=== PATIENT | male | born 1945 | race African-American/Black ===

== ENCOUNTER → 2017-10-21 | Outpatient (CLI) | payer MEDICARE, BC ==
[~2017-10-21] MED LIST: FOLI-43 PO; LISI-196 PO; METO-385 PO; METO10TA3 PO; OMEP20CA10 PO; SIMV40TA5 PO
== END | disposition home or self-care (01) ==
LOC: RAD 10:28
PROVIDERS: ATTEND Specialist
DX: R07.9 Chest pain, unspecified (principal)
CPT/HCPCS: 71010

== ENCOUNTER 2018-02-24 07:15 | Emergency (ER) | payer MEDICARE, BC ==
[~2018-02-24] VITALS: Ht 182.9 cm; Wt 87.0 kg
[2018-02-24] MEDS ORDERED: ONDANSETRON HCL 4MG/2ML VIAL IV STA (08:07)
[2018-02-24] MEDS ORDERED: MORPHINE SULFATE 4 MG/ML CPJ (NOT FOR IM USE) IV STA (08:07)
[2018-02-24] MEDS ORDERED: SODIUM CHLORIDE 0.9% 1,000 ML IV ONE (08:07)
[2018-02-24] MEDS ORDERED: KETOROLAC 30MG/ML VIAL IV ONE (08:15)
[2018-02-24 08:41] LABS: CHLORIDE 103 mEq/L (98-107)
[2018-02-24 08:44] LABS: BASOPHILS % 0.5 % (0.0-2.0); EOSINOPHILS % 0.9 % (0.0-5.0); MEAN CORPUSCULAR HEMOGLOBIN 30.6 pg (28.0-32.0); MEAN CORPUSCULAR VOLUME 89.8 fL (80.0-94.0); MEAN PLATELET VOLUME 8.5 fl (7.4-10.4); MONOCYTES % 7.5 % (2.0-8.0); NEUTROPHILS % 74.1 % (40.0-76.0); PLATELET 202 x1000/uL (130-400); RED CELL DISTRIBUTION WIDTH 13.5 % (11.6-14.6)
[2018-02-24 10:23] LABS: CLARITY URINE CLOUDY (CLEAR); COLOR URINE YELLOW (YELLOW); KETONES URINE NEGATIVE (NEGATIVE); LEUKOCYTE ESTERASE URINE NEGATIVE (NEGATIVE); NITRITE URINE NEGATIVE (NEGATIVE); OCCULT BLOOD URINE 3+ (NEGATIVE); PROTEIN URINE TRACE (NEGATIVE); SPECIFIC GRAVITY URINE 1.019 (1.005-1.030); UROBILINOGEN URINE 0.2 E.U./dL (0.2-1.0)
[2018-02-24 14:20] VITALS: BP 122/72
== END 2018-02-24 14:26 | disposition home or self-care (01) ==
LOC: ER 08:14
DX: N20.0 Calculus of kidney (principal); I10 Essential (primary) hypertension; E78.00 Pure hypercholesterolemia, unspecified; Z86.73 Personal history of transient ischemic attack (TIA), and cerebral infarction without residual deficits; Z95.1 Presence of aortocoronary bypass graft
CPT/HCPCS: 36415; 74176; 80053; 81003; 83690; 85025; 96361; 96374; 96375; 99285; J1885; J2270; J2405; J7030

== ENCOUNTER 2018-06-21 11:27 | Inpatient (IN) | payer MEDICARE, BC ==
[~2018-06-21] VITALS: Ht 190.5 cm; Wt 86.6 kg
[2018-06-21] MEDS ORDERED: ASPIRIN 325MG TABLET PO ONE (11:45)
[2018-06-21 14:42] LABS: BASOPHILS % 0.8 % (0.0-2.0); EOSINOPHILS % 1.2 % (0.0-5.0); HEMATOCRIT. 38.2 % (42.0-52.0); HEMOGLOBIN. 13.2 g/dL (14.0-18.0); MEAN CORPUSCULAR HEMOGLOBIN 31.2 pg (28.0-32.0); MEAN CORPUSCULAR VOLUME 90.6 fL (80.0-94.0); MEAN PLATELET VOLUME 8.6 fl (7.4-10.4); MONOCYTES % 9.5 % (2.0-8.0); NEUTROPHILS % 51.5 % (40.0-76.0); PLATELET 186 x1000/uL (130-400); RED BLOOD CELL COUNT 4.22 mill/uL (4.7-6.1); RED CELL DISTRIBUTION WIDTH 13.8 % (11.6-14.6)
[2018-06-21 14:47] LABS: CHLORIDE 109 mEq/L (98-107)
[2018-06-21 14:49] LABS: PARTIAL THROMBOPLASTIN TIME 26.9 sec (23.4-31.0); PROTHROMBIN TIME 10.5 sec (9.4-11.6)
[2018-06-21] MEDS ORDERED: REGADENOSON 0.4 MG/5 ML IV NR (16:30)
[2018-06-21] MEDS ORDERED: ATOR-2 MT (17:08)
[2018-06-21] MEDS ORDERED: ENOXAPARIN 40MG/0.4ML SYR SUBCUT SCH (18:00)
[2018-06-21 18:11] VITALS: BP 123/75
[2018-06-21 20:00] VITALS: BP 140/72
[2018-06-21] MEDS ORDERED: ATORVASTATIN CALCIUM 20MG TABLET PO SCH (21:00)
[2018-06-21] MEDS: METOPROLOL TARTRATE 25MG TABLET PO SCH (22:01)
[2018-06-22] VITALS: BP 136/70
[2018-06-22] MEDS ORDERED: ACETAMINOPHEN 325MG TABLET PO PRN (00:30)
[2018-06-22] MEDS ORDERED: ONDANSETRON HCL 4MG/2ML VIAL IV PRN (00:30)
[2018-06-22] MEDS ORDERED: HYDROCODONE/ACETAMINOPHEN 5/325MG TABLET PO PRN (00:30)
[2018-06-22] MEDS ORDERED: CLONIDINE 0.1MG TABLET PO PRN (00:30)
[2018-06-22] MEDS ORDERED: DIPHENHYDRAMINE 50MG/ML VIAL IV PRN (00:30)
[2018-06-22] MEDS ORDERED: IPRATROPIUM/ALBUTEROL 0.5-3(2.5)MG/3ML NEB INH PRN (00:30)
[2018-06-22] MEDS ORDERED: HYDROCODONE/APAP 7.5/325MG 1 TAB TABLET PO PRN ×2 (00:30)
[2018-06-22] MEDS ORDERED: DOCUSATE SODIUM 100MG CAPSULE PO PRN (00:30)
[2018-06-22] MEDS ORDERED: MAGNESIUM/ALUMINUM HYDROXIDE/SIMETHICONE 30ML UDC PO PRN (00:30)
[2018-06-22] MEDS ORDERED: GUAIFENESIN 200MG/10ML SUGAR FREE UDC PO PRN (00:30)
[2018-06-22] MEDS ORDERED: ONDANSETRON 4MG ODT PO PRN (01:00)
[2018-06-22 04:00] VITALS: BP 122/69
[2018-06-22 05:44] LABS: EOSINOPHILS % 1.4 % (0.0-5.0); HEMATOCRIT. 39.8 % (42.0-52.0); HEMOGLOBIN. 13.7 g/dL (14.0-18.0); LYMPHOCYTES % 39.4 % (20.0-50.0); MEAN CORPUSCULAR HEMOGLOBIN 31.2 pg (28.0-32.0); MEAN CORPUSCULAR VOLUME 90.5 fL (80.0-94.0); MEAN PLATELET VOLUME 8.9 fl (7.4-10.4); MONOCYTES % 9.4 % (2.0-8.0); NEUTROPHILS % 48.8 % (40.0-76.0); PLATELET 186 x1000/uL (130-400); RED CELL DISTRIBUTION WIDTH 13.7 % (11.6-14.6)
[2018-06-22 06:36] LABS: CHLORIDE 108 mEq/L (98-107)
[2018-06-22 08:00] VITALS: BP 134/80
[2018-06-22] MEDS: METOPROLOL TARTRATE 25MG TABLET PO SCH (08:40)
[2018-06-22] MEDS ORDERED: LOSARTAN POTASSIUM 50 MG TABLET PO SCH (09:00)
[2018-06-22] MEDS ORDERED: ASPIRIN 81MG EC TABLET PO SCH (09:00)
[2018-06-22] MEDS ORDERED: REGADENOSON 0.4 MG/5 ML IV ONE (09:55)
[2018-06-22] MEDS ORDERED: POTASSIUM CHLORIDE 20MEQ TABLET SR PO NR (11:00)
[2018-06-22 12:00] VITALS: BP 135/75
[2018-06-22 13:08] VITALS: BP 135/75
== END 2018-06-22 17:18 | disposition home or self-care (01) | DRG 206 ==
LOC: EDBEDREQ 15:29 → ENRESERV 15:43 → ER 15:58 → 7WST 16:00 → CANBEDREQ 16:02
PROVIDERS: ADMIT Family Medicine Adult Medicine; ATTEND Family Medicine Adult Medicine
DX: M94.0 Chondrocostal junction syndrome [Tietze] (principal); E78.00 Pure hypercholesterolemia, unspecified; E78.5 Hyperlipidemia, unspecified; E87.8 Other disorders of electrolyte and fluid balance, not elsewhere classified; I11.9 Hypertensive heart disease without heart failure; J44.9 Chronic obstructive pulmonary disease, unspecified; I25.10 Atherosclerotic heart disease of native coronary artery without angina pectoris; I44.0 Atrioventricular block, first degree; I69.398 Other sequelae of cerebral infarction; Z79.899 Other long term (current) drug therapy; Z95.1 Presence of aortocoronary bypass graft
CPT/HCPCS: 36415; 71045; 78452; 80048; 80053; 83690; 83880; 84484; 85025; 85610; 85730; 93005; 93017; 93306; 99285; A9500; J1650; J2785

== ENCOUNTER → 2021-04-23 | Outpatient (CLI) | payer MEDICARE, BC ==
[~2021-04-23] MED LIST changes: +ASPI-986 PO; +ATOR-2 MT; +CLOP-31 PO; -OMEP20CA10 PO; +OMEP20CA14 PO; +OMEP40CA12 PO; +RANO500T3 PO; +SIMV-46 PO; -SIMV40TA5 PO
== END | disposition home or self-care (01) ==
LOC: LAB 09:30
PROVIDERS: ATTEND Internal Medicine Gastroenterology
DX: Z01.812 Encounter for preprocedural laboratory examination (principal); Z20.822 Contact with and (suspected) exposure to COVID-19
CPT/HCPCS: 87426

== ENCOUNTER → 2021-04-24 | Day surgery (SDC) | payer MEDICARE, BC ==
[~2021-04-24] VITALS: Ht 182.9 cm; Wt 81.2 kg
[~2021-04-24] MED LIST changes: +IPRATROPIUM/ALBUTEROL 0.5-3(2.5)MG/3ML NEB HHN SCH; +LACTATED RINGERS 1,000 ML IV SCH; +MEPERIDINE HCL/PF 25MG/ML CPJ IV PRN; -METO10TA3 PO; +MORPHINE SULFATE 2 MG/ML CPJ (NOT FOR IM USE) IV PRN; -OMEP20CA14 PO; +ONDANSETRON HCL 4MG/2ML INJ IV PRN; +PROPOFOL 200MG/20ML VIAL IV ONE; -SIMV-46 PO; +SODIUM CHLORIDE 0.9% 1,000 ML IV ONE
[2021-04-24] MEDS: HYDROMORPHONE HCL/PF 2MG/ML CPJ IV PRN ×2 (11:31→11:39)
[2021-04-24 11:39] VITALS: BP 144/67
== END | disposition home or self-care (01) ==
LOC: OR 09:02
PROVIDERS: ATTEND Internal Medicine Gastroenterology
DX: K22.0 Achalasia of cardia (principal); R13.10 Dysphagia, unspecified; I10 Essential (primary) hypertension; I25.10 Atherosclerotic heart disease of native coronary artery without angina pectoris; Z79.82 Long term (current) use of aspirin; Z79.899 Other long term (current) drug therapy; Z98.890 Other specified postprocedural states; Z72.89 Other problems related to lifestyle
CPT/HCPCS: 43249; 93005; 94640; J1170; J2704

== ENCOUNTER → 2022-03-11 | Outpatient (CLI) | payer MEDICARE, BC ==
[~2022-03-11] MED LIST changes: -IPRATROPIUM/ALBUTEROL 0.5-3(2.5)MG/3ML NEB HHN SCH; -LACTATED RINGERS 1,000 ML IV SCH; -MEPERIDINE HCL/PF 25MG/ML CPJ IV PRN; -MORPHINE SULFATE 2 MG/ML CPJ (NOT FOR IM USE) IV PRN; -OMEP40CA12 PO; +OMEP40CA20 PO; -ONDANSETRON HCL 4MG/2ML INJ IV PRN; -PROPOFOL 200MG/20ML VIAL IV ONE; -SODIUM CHLORIDE 0.9% 1,000 ML IV ONE; +VIAG100 PO
== END | disposition home or self-care (01) ==
LOC: LAB 13:42
PROVIDERS: ATTEND Internal Medicine Gastroenterology
DX: Z01.812 Encounter for preprocedural laboratory examination (principal); Z20.822 Contact with and (suspected) exposure to COVID-19
CPT/HCPCS: 87426

== ENCOUNTER → 2022-03-17 | Outpatient (CLI) | payer MEDICARE, BC | END | disposition home or self-care (01) | LOC: LAB 11:01 | PROVIDERS: ATTEND Specialist | DX: R05.9 Cough, unspecified (principal); Z20.822 Contact with and (suspected) exposure to COVID-19 | CPT/HCPCS: C9803; U0003; U0005 ==

== ENCOUNTER → 2022-04-08 | Outpatient (CLI) | payer MEDICARE, BC | END | disposition home or self-care (01) | LOC: LAB 09:17 | PROVIDERS: ATTEND Internal Medicine Gastroenterology | DX: Z01.812 Encounter for preprocedural laboratory examination (principal); Z20.822 Contact with and (suspected) exposure to COVID-19 | CPT/HCPCS: 87426; C9803 ==

== ENCOUNTER → 2022-04-09 | Day surgery (SDC) | payer MEDICARE, BC ==
[~2022-04-09] VITALS: Ht 188 cm; Wt 80.7 kg
[~2022-04-09] MED LIST changes: +ATROPINE SULFATE 1MG/10ML SYR ONE; +EPHEDRINE SULFATE 50MG/ML VIAL ONE; +LACTATED RINGERS 1,000 ML IV SCH; +LIDOCAINE HCL 1% 20ML VIAL (Pyxis) INJ ONE; +MIDAZOLAM HCL 2 MG/2 ML VIAL ONE; +PROPOFOL 200MG/20ML VIAL IV ONE
[2022-04-09 10:06] LABS: BASOPHILS % 1.5 % (0.0-2.0); EOSINOPHILS % 1.6 % (0.0-5.0); HEMATOCRIT. 40.7 % (42.0-52.0); HEMOGLOBIN. 13.9 g/dL (14.0-18.0); LYMPHOCYTES % 31.4 % (20.0-50.0); MEAN CORPUSCULAR HEMOGLOBIN 30.6 pg (28.0-32.0); MEAN CORPUSCULAR VOLUME 89.8 fL (80.0-94.0); MEAN PLATELET VOLUME 8.5 fl (7.4-10.4); MONOCYTES % 11.8 % (2.0-8.0); NEUTROPHILS % 53.7 % (40.0-76.0); PLATELET 169 x1000/uL (130-400); RED BLOOD CELL COUNT 4.53 mill/uL (4.7-6.1); RED CELL DISTRIBUTION WIDTH 13.4 % (11.6-14.6)
[2022-04-09 10:15] LABS: PARTIAL THROMBOPLASTIN TIME 28.1 sec (23.4-31.0); PROTHROMBIN TIME 10.8 sec (9.6-11.0)
== END | disposition home or self-care (01) ==
LOC: OR 09:01
PROVIDERS: ATTEND Internal Medicine Gastroenterology
DX: K22.0 Achalasia of cardia (principal); K31.89 Other diseases of stomach and duodenum; I25.10 Atherosclerotic heart disease of native coronary artery without angina pectoris; I10 Essential (primary) hypertension; E78.5 Hyperlipidemia, unspecified; J44.9 Chronic obstructive pulmonary disease, unspecified; Z86.73 Personal history of transient ischemic attack (TIA), and cerebral infarction without residual deficits; Z79.899 Other long term (current) drug therapy; Z79.82 Long term (current) use of aspirin; Z98.890 Other specified postprocedural states; Z79.01 Long term (current) use of anticoagulants
CPT/HCPCS: 36415; 43249; 80048; 85025; 85610; 85730; J0461; J2250; J2704; J3490

== ENCOUNTER 2022-12-12 17:21 | Inpatient (IN) | payer MEDICARE, BC ==
[~2022-12-12] VITALS: Ht 182.9 cm; Wt 82.1 kg
[~2022-12-12 17:21] MED LIST changes: -ATROPINE SULFATE 1MG/10ML SYR ONE; -EPHEDRINE SULFATE 50MG/ML VIAL ONE; -LACTATED RINGERS 1,000 ML IV SCH; -LIDOCAINE HCL 1% 20ML VIAL (Pyxis) INJ ONE; -MIDAZOLAM HCL 2 MG/2 ML VIAL ONE; -PROPOFOL 200MG/20ML VIAL IV ONE
[2022-12-12] MEDS ORDERED: ASPIRIN 81MG TABLET PO ONE (21:45)
[2022-12-12 22:26] LABS: BASOPHILS % 0.7 % (0.0-2.0); EOSINOPHILS % 0.9 % (0.0-5.0); HEMATOCRIT. 46.7 % (42.0-52.0); MEAN CORPUSCULAR HEMOGLOBIN 31.4 pg (28.0-32.0); MEAN CORPUSCULAR VOLUME 91.6 fL (80.0-94.0); MEAN PLATELET VOLUME 8.8 fl (7.4-10.4); MONOCYTES % 6.9 % (2.0-8.0); NEUTROPHILS % 58.5 % (40.0-76.0); PLATELET 180 x1000/uL (130-400); RED BLOOD CELL COUNT 5.11 mill/uL (4.7-6.1); RED CELL DISTRIBUTION WIDTH 13.6 % (11.6-14.6)
[2022-12-12 22:33] LABS: CHLORIDE 103 mEq/L (98-107)
[2022-12-13 05:02] VITALS: BP 124/76
[2022-12-13 08:19] VITALS: BP 118/74
[2022-12-13] MEDS ORDERED: HEPARIN 5000 UNITS/ML VIAL SUBCUT SCH (09:00)
[2022-12-13] MEDS ORDERED: LISINOPRIL 20MG TABLET PO SCH (09:00)
[2022-12-13] MEDS ORDERED: METOPROLOL TARTRATE 50MG TABLET PO SCH (09:00)
[2022-12-13] MEDS: CLOPIDOGREL 75MG TABLET PO SCH (09:08)
[2022-12-13] MEDS: FOLIC ACID 1MG TABLET PO SCH (09:08)
[2022-12-13] MEDS: PANTOPRAZOLE 40MG DR TABLET PO SCH (09:09)
[2022-12-13 11:46] VITALS: BP 117/68
[2022-12-13 12:19] LABS: BASOPHILS % 0.7 % (0.0-2.0); HEMATOCRIT. 40.7 % (42.0-52.0); HEMOGLOBIN. 14.1 g/dL (14.0-18.0); LYMPHOCYTES % 35.2 % (20.0-50.0); MEAN CORPUSCULAR HEMOGLOBIN 31.5 pg (28.0-32.0); MEAN CORPUSCULAR VOLUME 91.3 fL (80.0-94.0); MEAN PLATELET VOLUME 9.3 fl (7.4-10.4); MONOCYTES % 10.5 % (2.0-8.0); NEUTROPHILS % 51.6 % (40.0-76.0); PLATELET 162 x1000/uL (130-400); RED BLOOD CELL COUNT 4.46 mill/uL (4.7-6.1); RED CELL DISTRIBUTION WIDTH 13.4 % (11.6-14.6)
[2022-12-13 14:22] LABS: CHLORIDE 107 mEq/L (98-107)
[2022-12-13 15:19] LABS: CLARITY URINE CLEAR (CLEAR); COLOR URINE YELLOW (YELLOW); KETONES URINE NEGATIVE (NEGATIVE); LEUKOCYTE ESTERASE URINE NEGATIVE (NEGATIVE); NITRITE URINE NEGATIVE (NEGATIVE); OCCULT BLOOD URINE NEGATIVE (NEGATIVE); PH URINE 6.5 (4.5-8.0); PROTEIN URINE TRACE (NEGATIVE); SPECIFIC GRAVITY URINE 1.014 (1.005-1.030); UROBILINOGEN URINE 0.2 E.U./dL (0.2-1.0)
[2022-12-13 15:32] LABS: *AMPHETAMINES SCREEN URINE NEGATIVE (NEGATIVE); *BARBITURATES SCREEN URINE NEGATIVE (NEGATIVE); *BENZODIAZEPINES SCREEN URINE NEGATIVE (NEGATIVE); *COCAINE SCREEN URINE NEGATIVE (NEGATIVE); CANNABINOID URINE SCREEN NEGATIVE (NEGATIVE); METHADONE URINE SCREEN NEGATIVE (NEGATIVE); OPIATES URINE SCREEN NEGATIVE (NEGATIVE); PHENCYCLIDINE URINE SCREEN NEGATIVE (NEGATIVE)
[2022-12-13 15:47] VITALS: BP 115/60
[2022-12-13 20:00] VITALS: BP 132/67
[2022-12-13] MEDS: METOPROLOL TARTRATE 25MG TABLET PO SCH (20:39)
[2022-12-13] MEDS ORDERED: ASPIRIN 81MG TABLET PO SCH (21:00)
[2022-12-13] MEDS ORDERED: ATORVASTATIN CALCIUM 40MG TABLET PO SCH (21:00)
[2022-12-14] VITALS: BP 125/77
[2022-12-14 04:00] VITALS: BP 132/69
[2022-12-14 06:03] LABS: CHLORIDE 106 mEq/L (98-107)
[2022-12-14 06:29] LABS: EOSINOPHILS % 1.8 % (0.0-5.0); HEMATOCRIT. 43.1 % (42.0-52.0); HEMOGLOBIN. 14.9 g/dL (14.0-18.0); LYMPHOCYTES % 38.7 % (20.0-50.0); MEAN CORPUSCULAR HEMOGLOBIN 31.2 pg (28.0-32.0); MEAN CORPUSCULAR VOLUME 90.6 fL (80.0-94.0); MEAN PLATELET VOLUME 9.7 fl (7.4-10.4); MONOCYTES % 10.1 % (2.0-8.0); NEUTROPHILS % 48.4 % (40.0-76.0); PLATELET 175 x1000/uL (130-400); RED BLOOD CELL COUNT 4.76 mill/uL (4.7-6.1); RED CELL DISTRIBUTION WIDTH 13.4 % (11.6-14.6)
[2022-12-14 08:00] VITALS: BP 129/66
[2022-12-14] MEDS ORDERED: ENOXAPARIN 40MG/0.4ML SYR SUBCUT SCH (09:00)
[2022-12-14] MEDS ORDERED: LISINOPRIL 10MG TABLET PO SCH (09:00)
[2022-12-14] MEDS: METOPROLOL TARTRATE 25MG TABLET PO SCH (09:16)
[2022-12-14] MEDS: FOLIC ACID 1MG TABLET PO SCH (09:16)
[2022-12-14] MEDS: CLOPIDOGREL 75MG TABLET PO SCH (09:16)
[2022-12-14] MEDS: PANTOPRAZOLE 40MG DR TABLET PO SCH (09:16)
[2022-12-14 11:53] VITALS: BP 129/66
[2022-12-14 12:00] VITALS: BP 114/60
== END 2022-12-14 12:55 | disposition home health service (06) | DRG 392 ==
LOC: ER 17:21 → MICUSO 12-13 01:40 → EDBEDREQ 12-13 01:43 → EDBEDREQTM 12-13 01:43 → 7EST 12-13 05:29
PROVIDERS: ADMIT Internal Medicine; ATTEND Internal Medicine
DX: K21.9 Gastro-esophageal reflux disease without esophagitis (principal); I49.3 Ventricular premature depolarization; I44.0 Atrioventricular block, first degree; I10 Essential (primary) hypertension; I25.10 Atherosclerotic heart disease of native coronary artery without angina pectoris; Z86.73 Personal history of transient ischemic attack (TIA), and cerebral infarction without residual deficits; E78.00 Pure hypercholesterolemia, unspecified; Z95.1 Presence of aortocoronary bypass graft; E78.5 Hyperlipidemia, unspecified; Z79.02 Long term (current) use of antithrombotics/antiplatelets; Z79.82 Long term (current) use of aspirin
CPT/HCPCS: 36415; 71045; 80048; 80053; 80061; 80305; 81003; 83735; 83880; 84484; 85025; 85379; 93005; 93306; 99285; J1644; J1650

== ENCOUNTER → 2023-01-29 | Outpatient (CLI) | payer MEDICARE, BC ==
[~2023-01-29] MED LIST changes: +BARIUM SULFATE 176 GM SUSP.RECON ONE; +BARIUM SULFATE(VOLUMEN) 450 ML ORAL.SUSP ONE
== END | disposition home or self-care (01) ==
LOC: RAD 09:17
PROVIDERS: ATTEND Internal Medicine Gastroenterology
DX: K22.89 Other specified disease of esophagus (principal); K44.9 Diaphragmatic hernia without obstruction or gangrene; K22.0 Achalasia of cardia
CPT/HCPCS: 74220

== ENCOUNTER → 2023-02-18 | Day surgery (SDC) | payer MEDICARE, BC ==
[~2023-02-18] VITALS: Ht 182.9 cm; Wt 81.2 kg
[~2023-02-18] MED LIST changes: +ATROPINE SULFATE 1MG/10ML SYR ONE; -BARIUM SULFATE 176 GM SUSP.RECON ONE; -BARIUM SULFATE(VOLUMEN) 450 ML ORAL.SUSP ONE; +EPHEDRINE SULFATE 50MG/ML VIAL ONE; +ETOMIDATE 2MG/ML 10ML VIAL IV ONE; +FENTANYL CITRATE/PF 50MCG/ML 2ML VIAL IV NR; +LACTATED RINGERS 1,000 ML IV SCH; +LIDOCAINE HCL 1% 10 MG/ML 10ML VIAL ONE; +MIDAZOLAM HCL 2 MG/2 ML VIAL ONE; +PHENYLEPHRINE HCL 10 MG/ML 1ML (IV VIAL) IV ONE; +PROPOFOL 200MG/20ML VIAL IV ONE; +SIMETHICONE 40 MG/0.6 ML 15ML ONE; +SODIUM CHLORIDE 0.9% 10ML VIAL ONE
[2023-02-18 13:25] VITALS: BP 161/92
== END | disposition home or self-care (01) ==
LOC: OR 09:08
PROVIDERS: ATTEND Internal Medicine Gastroenterology
DX: K22.0 Achalasia of cardia (principal); K44.9 Diaphragmatic hernia without obstruction or gangrene; K31.89 Other diseases of stomach and duodenum; I10 Essential (primary) hypertension; E11.9 Type 2 diabetes mellitus without complications; E78.5 Hyperlipidemia, unspecified; I25.10 Atherosclerotic heart disease of native coronary artery without angina pectoris; I73.9 Peripheral vascular disease, unspecified; Z79.82 Long term (current) use of aspirin; Z79.899 Other long term (current) drug therapy; Z98.890 Other specified postprocedural states; Z20.822 Contact with and (suspected) exposure to COVID-19
CPT/HCPCS: 43233; 87426; A4216; C9803; J0461; J2250; J2370; J2704; J3010; J3490; Z7610

== ENCOUNTER 2023-10-26 22:20 | Emergency (ER) | payer MEDICARE, BC ==
[~2023-10-26] VITALS: Ht 182.9 cm; Wt 85.0 kg
[~2023-10-26 22:20] MED LIST changes: -ATROPINE SULFATE 1MG/10ML SYR ONE; -EPHEDRINE SULFATE 50MG/ML VIAL ONE; -ETOMIDATE 2MG/ML 10ML VIAL IV ONE; -FENTANYL CITRATE/PF 50MCG/ML 2ML VIAL IV NR; -LACTATED RINGERS 1,000 ML IV SCH; -LIDOCAINE HCL 1% 10 MG/ML 10ML VIAL ONE; -MIDAZOLAM HCL 2 MG/2 ML VIAL ONE; -PHENYLEPHRINE HCL 10 MG/ML 1ML (IV VIAL) IV ONE; -PROPOFOL 200MG/20ML VIAL IV ONE; -RANO500T3 PO; -SIMETHICONE 40 MG/0.6 ML 15ML ONE; -SODIUM CHLORIDE 0.9% 10ML VIAL ONE
[2023-10-26 23:08] VITALS: BP 118/71; O2SAT 98
[2023-10-27 03:18] VITALS: PULSE 88; RESP 16; TEMP 98.5
== END 2023-10-27 03:19 | disposition home or self-care (01) ==
LOC: ER 22:20
DX: M79.605 Pain in left leg (principal); I25.10 Atherosclerotic heart disease of native coronary artery without angina pectoris; E78.00 Pure hypercholesterolemia, unspecified; I10 Essential (primary) hypertension; Z86.73 Personal history of transient ischemic attack (TIA), and cerebral infarction without residual deficits; Z79.899 Other long term (current) drug therapy
CPT/HCPCS: 93971; 99284

== ENCOUNTER 2024-03-25 10:02 | Emergency (ER) | payer MEDICARE, BC ==
[~2024-03-25] VITALS: Ht 182.9 cm; Wt 79.9 kg
[2024-03-25 10:10] VITALS: O2SAT 98
[2024-03-25 11:56] LABS: POTASSIUM 4.2 mEq/L (3.5-5.1)
[2024-03-25 11:57] LABS: CALCIUM 11.4 mg/dL (8.7-10.4)
[2024-03-25 11:59] LABS: EOSINOPHILS % 1.9 % (0.0-5.0); HEMATOCRIT. 42.2 % (42.0-52.0); HEMOGLOBIN. 14.2 g/dL (14.0-18.0); LYMPHOCYTES % 27.1 % (20.0-50.0); MEAN CORPUSCULAR HEMOGLOBIN 31.6 pg (28.0-32.0); MEAN CORPUSCULAR HGB CONC 33.6 g/dL (31.0-37.0); MEAN CORPUSCULAR VOLUME 93.9 fL (80.0-94.0); MEAN PLATELET VOLUME 9.7 fl (7.4-10.4); MONOCYTES % 10.3 % (2.0-8.0); NEUTROPHILS % 59.7 % (40.0-76.0); PLATELET 171 x1000/uL (130-400); RED BLOOD CELL COUNT 4.49 mill/uL (4.7-6.1); RED CELL DISTRIBUTION WIDTH 14.2 % (11.6-14.6); WHITE BLOOD COUNT 5.2 x1000/uL (4.5-11.0)
[2024-03-25 12:02] LABS: CREATININE 1.5 mg/dL (0.6-1.3)
[2024-03-25 12:24] LABS: CLARITY URINE CLEAR (CLEAR); COLOR URINE YELLOW (YELLOW); GLUCOSE URINE NEGATIVE (NEGATIVE); KETONES URINE NEGATIVE (NEGATIVE); LEUKOCYTE ESTERASE URINE NEGATIVE (NEGATIVE); NITRITE URINE NEGATIVE (NEGATIVE); OCCULT BLOOD URINE NEGATIVE (NEGATIVE); PH URINE 5.5 (4.5-8.0); PROTEIN URINE TRACE (NEGATIVE); SPECIFIC GRAVITY URINE 1.015 (1.005-1.030); UROBILINOGEN URINE 0.2 E.U./dL (0.2-1.0)
[2024-03-25 12:45] LABS: RBC URINE NONE SEEN /hpf (0-2); SQUAMOUS EPITHELIAL CELL URINE RARE /lpf (RARE/1+); WBC URINE 0-2 /hpf (0-2)
[2024-03-25 12:46] LABS: BACTERIA URINE TRACE
[2024-03-25] MEDS ORDERED: IOHEXOL-300 100 ML BOTTLE ONE (14:59)
[2024-03-25 16:47] VITALS: BP 120/63; PULSE 67; RESP 13; TEMP 97.7
== END 2024-03-25 16:48 | disposition home or self-care (01) ==
LOC: ER 10:02
DX: K42.9 Umbilical hernia without obstruction or gangrene (principal); E78.00 Pure hypercholesterolemia, unspecified; I11.9 Hypertensive heart disease without heart failure; Z86.73 Personal history of transient ischemic attack (TIA), and cerebral infarction without residual deficits; Z98.890 Other specified postprocedural states
CPT/HCPCS: 99285; 74177; 80048; 81003; 83690; 85025; 36415; Q9967

== ENCOUNTER 2024-05-18 06:02 | Day surgery (SDC) | payer MEDICARE, BC ==
[~2024-05-18] VITALS: Ht 182.9 cm; Wt 81.6 kg
[~2024-05-18 06:02] MED LIST changes: +DILT90CA PO; -METO-385 PO; -OMEP40CA20 PO; +PANT40TA51 PO; +TAMS-11 PO; -VIAG100 PO
[2024-05-18] MEDS ORDERED: LACTATED RINGERS 1,000 ML IV SCH (06:15)
[2024-05-18 06:51] LABS: POTASSIUM 3.7 mEq/L (3.5-5.1)
[2024-05-18 06:52] LABS: CALCIUM 11.8 mg/dL (8.7-10.4)
[2024-05-18 06:57] LABS: CREATININE 1.6 mg/dL (0.6-1.3)
[2024-05-18] MEDS: LACTATED RINGERS 1,000 ML IV SCH (07:13)
[2024-05-18] MEDS ORDERED: LIDOCAINE HCL 1% 10 MG/ML 10ML VIAL ONE (07:30)
[2024-05-18] MEDS ORDERED: POLYMYXIN B SULFATE 500000 UNITS/VIAL ONE (07:30)
[2024-05-18] MEDS ORDERED: BUPIVACAINE HCL/PF 0.5% (5MG/ML) 10ML ONE ×2 (07:30→07:44)
[2024-05-18] MEDS ORDERED: CEFAZOLIN SODIUM 1000MG/VIAL ONE (07:51)
[2024-05-18] MEDS ORDERED: PROPOFOL 200MG/20ML VIAL IV ONE (07:52)
[2024-05-18] MEDS ORDERED: MIDAZOLAM HCL 2 MG/2 ML VIAL ONE (08:15)
[2024-05-18] MEDS ORDERED: FENTANYL CITRATE/PF 50MCG/ML 2ML VIAL ONE ×2 (08:38→08:52)
[2024-05-18] MEDS ORDERED: NEOSTIGMINE METHYLSULFATE 1MG/ML 10 ML VIAL ONE (08:51)
[2024-05-18] MEDS ORDERED: ROCURONIUM BROMIDE 10MG/ML VIAL 5ML IV ONE (08:51)
[2024-05-18] MEDS ORDERED: DEXAMETHASONE 4MG/ML 1ML VIAL ONE (08:51)
[2024-05-18] MEDS ORDERED: GLYCOPYRROLATE 0.2 MG/ML 2ML VIAL ONE (08:51)
[2024-05-18] MEDS ORDERED: ONDANSETRON HCL 4MG/2ML INJ ONE (08:51)
[2024-05-18] MEDS ORDERED: HYDROMORPHONE HCL/PF 2MG/ML INJ IV PRN (09:00)
[2024-05-18] MEDS ORDERED: MEPERIDINE HCL/PF 25MG/ML CPJ IV PRN (09:00)
[2024-05-18] MEDS ORDERED: FENTANYL CITRATE/PF 50MCG/ML 2ML VIAL IV PRN (09:00)
[2024-05-18] MEDS ORDERED: ONDANSETRON HCL 4MG/2ML INJ IV PRN (09:00)
[2024-05-18] MEDS ORDERED: SKIN ADHESIVE 0.7 GM EA TOP ONE ×2 (09:01→10:05)
[2024-05-18] MEDS ORDERED: LIDOCAINE HCL 1% 20ML VIAL ONE (09:02)
[2024-05-18] MEDS ORDERED: SUGAMMADEX SODIUM 200 MG/2 ML VIAL IV NR (10:00)
== END 2024-05-18 11:20 | disposition home or self-care (01) ==
LOC: OR 06:02
PROVIDERS: ATTEND Surgery
DX: K42.9 Umbilical hernia without obstruction or gangrene (principal); I12.9 Hypertensive chronic kidney disease with stage 1 through stage 4 chronic kidney disease, or unspecified chronic kidney disease; N18.9 Chronic kidney disease, unspecified; I25.10 Atherosclerotic heart disease of native coronary artery without angina pectoris; N40.0 Benign prostatic hyperplasia without lower urinary tract symptoms; E78.5 Hyperlipidemia, unspecified; Z98.890 Other specified postprocedural states; Z79.82 Long term (current) use of aspirin; Z79.899 Other long term (current) drug therapy
CPT/HCPCS: 49593; 88302; 80048; 36415; J3010; J3490 ×6; J0690; J1100; J2250; J2405; J2704; C1781; J2710